=== PATIENT | female | born 1995 | race Caucasian/White ===

== ENCOUNTER 2016-07-24 10:24 | Inpatient (IN) | payer OTHER ==
[~2016-07-24] VITALS: Ht 154.9 cm; Wt 74.0 kg
[2016-07-24] VITALS (36 sets, daily range): BP systolic 114–148; BP diastolic 57–100
[2016-07-24] MEDS ORDERED: LACTATED RINGER'S 1000 ML IV STA (10:50)
[2016-07-24] MEDS ORDERED: ZOLO100T PO (11:38)
[2016-07-24] MEDS ORDERED: ZOFR20TA PO (11:39)
[2016-07-24] MEDS ORDERED: BANO2CRE EX (11:40)
[2016-07-24] MEDS ORDERED: HYDR1CRE TOP (11:41)
--- NOTE | 2016-07-24 11:47 | HPEPDOC ---
Obstetrical History & Physical General Date of Admission Jul 24, 2016 at 10:50 History of Present Illness Casandra is a 21yo with SIUP at 39w1d by 8wk u/s presenting today with painful regular ctx all night long that are closer together, about every 5 min now. No LOF, no vaginal bleeding, good movement. PMhx: asthma (albuterol prn), anxiety/depression (on 100mg zoloft QD), tobacco use (currently 3 cig/day), endometriosis course: benign Chief Complaint: Contractions, term Information Provided By: Patient Care Care: Good Care Dating Final EDC: Jul 30, 2016 Final EDC by: 1st trimester (US) Antepartum Course Height (inches): 60 Pre- weight (lbs.): 137 Admission Weight (lbs.): 169 Change in Weight (lbs.): 32 Past Medical History Past Obstetrical History : Past Obstetrical History: [employer] History: Endometriosis, Ovarian cysts, Human papillomavirus(HPV), History of STD (Hx of chlamydia in 2010) Past Medical History Medical History Asthma (albuterol prn), anxiety/depression (on 100mg zoloft QD), tobacco use ( currently 3 cig/day), endometriosis Surgical History: Diagnostic laparoscopy, Other (Laparoscopy x4 for endometriosis with laser fulgaration) Family History Significant Family History: No pertinent family hx Social History Marital Status: Family situation: Spouse/partner home Psychosocial History: Anxiety, Depression * Smoker: current smoker (3 cig/day) Alcohol: Denies Drugs: denies Imunizations Tdap status: current Influenza Status: current Physical Examination Physical Examination GENERAL: Alert and oriented times three. ABDOMEN: Gravid and non-tender to touch. FETUS: Is vertex (VTX) by sterile vaginal examination (SVE) HEART RATE: Regular rate and rhythm. LUNGS: Clear to auscultation (CTA). EXTREMITIES: Trace edema of BLE Pertinent Laboratoy Data Blood Type: O+ RBC Antibody Screen: Negative HIV: Negative Hepatitis B: Negative Hepatitis C: Unknown Rapid Plasma Reagin: Nonreactive Rubella: Immune Varicella: Immune Chlamydia/Gonorrhea: Negative Group B Streptococcus: Negative Glucose Tolerance Test: 82 Anatomy Ultrasound Ultrasound Date: Mar 16, 2016 Placenta Location: Posterior Normal Anatomy: Yes Placenta Previa: No Steroid Therapy Steroid Therapy: No Vaginal Examination Dilation: 4 cm Effacement: 80+% Station: -2 Cervical Consistency: Soft Cervical Position: Middle Presentation: Cephalic presentation Assessment Heart Rate (FHR): 140 Variability: Moderate Accelerations: Positive Decelerations: None Tocometer Contractions: Yes Frequency: regular, every 3-7 min. Duration: greater than 60 seconds Strength: palpated as moderate Assessment/Plan Assessment Casandra is a 21yo with SIUP at 39w1d by 8wk u/s being admitted to L&D for active labor with SCE 4/80/-2, ctx q5 min. Cephalic by SCE. Vitals wnl. Cat I FHRT. GBS negative. PMhx: asthma (albuterol prn), anxiety/depression (on 100mg zoloft QD), tobacco use (currently 3 cig/day), endometriosis course: benign Plan Admit and orient. [employer] and consent. Diet: clear liquids Labs and intravenous (IV) per unit protocol. Lactated Ringers (LR): Bolus 1000 mL, then at 125 mL/hr. Anticipate normal spontaneous delivery () C-S as appropriate. Desires epidural for pain control Dr. Chris Baltazar MD [place] Schilling MD Jul 24, 2016 11:47
[2016-07-24 12:36] LABS: MEAN CORPUSCULAR HEMOGLOBIN 28.8 pg (27.0-33.0); MEAN CORPUSCULAR HGB CONC 32.4 g/dl (32.0-36.5); MEAN CORPUSCULAR VOLUME 88.7 fl (80.0-96.0); RED CELL DISTRIBUTION WIDTH 13.5 % (11.5-14.5); WHITE BLOOD COUNT 13.3 K/mm3 (4.0-10.0)
[2016-07-24] MEDS: LR 1,000 ML IV SCH ×4 (13:16→22:41)
[2016-07-24] MEDS ORDERED: FENTANYL 2MCG/ML ROPIVACAINE 0.2% IN 0.9% NACL 200ML IVBAG As Ordered ONE (13:36)
[2016-07-24] MEDS ORDERED: OXYTOCIN DRIP 30 UNITS in APPROPRIATE DILUENT 1 EA IV SCH ×2 (14:45→22:37)
[2016-07-24] MEDS ORDERED: DIBUCAINE 1% OINTMENT 30GM TOP PRN (22:45)
[2016-07-24] MEDS ORDERED: METHYLERGONOVINE MALEATE 0.2 MG TAB PO PRN (22:45)
[2016-07-24] MEDS ORDERED: RHOGAM 300 MCG (1500 IU) INJ (J2790) IM SCH (22:45)
[2016-07-24] MEDS ORDERED: ANUSOL HC CREAM 30GM TOP PRN (22:45)
[2016-07-24] MEDS ORDERED: PROMETHAZINE 25 MG TAB PO PRN (22:45)
[2016-07-24] MEDS ORDERED: ONDANSETRON 4MG/2ML VIAL (J2405) IV PRN (22:45)
[2016-07-24] MEDS ORDERED: DOCUSATE SODIUM 100 MG CAP PO PRN (22:45)
[2016-07-24] MEDS ORDERED: ACETAMINOPHEN 500 MG TAB PO PRN (22:45)
[2016-07-24] MEDS ORDERED: MEASLES,MUMPS,RUBELLA VACCINE INJ (MMR-II) (90707) SC SCH (22:45)
[2016-07-25] MEDS: IBUPROFEN 800 MG TAB PO PRN ×2 (01:58→17:44)
[2016-07-25 02:02] VITALS: BP 135/81
[2016-07-25] MEDS: LR 1,000 ML IV SCH ×2 (02:50→06:41)
[2016-07-25 05:35] VITALS: BP 135/67
[2016-07-25] MEDS: PRENATAL VITAMIN TAB PO SCH (09:29)
[2016-07-25 18:00] VITALS: BP 137/83
[2016-07-26 06:06] VITALS: BP 115/69
[2016-07-26] MEDS: PRENATAL VITAMIN TAB PO SCH (07:50)
[2016-07-26] MEDS: IBUPROFEN 800 MG TAB PO PRN (07:52)
--- NOTE | 2016-07-26 08:55 | IPNPDOC ---
Text Note Date of Service The patient was seen on 07/26/16. NOTE PPD 2 Casandra is a 21yo doing well on PPD 2 s/p uncomplicated . She is /bottle-feeding. Lochia normal, spontaneously voiding and ambulating without difficulty. Tolerating regular diet. Denies f/c/n/v/SOB/CP/SHAH /abdominal pain. Vitals wnl, afebrile Exam: General: WDWN, NAD, resting comfortably Abdomen: soft, NTTP, fundus firm u-2cm Extremities: no tenderness of calves bilaterally Assessment: Casandra is a 21yo doing well on PPD 2 s/p uncomplicated . Meeting all milestones. No e/o infection, hemodynamically stable. Plan: -discharge to home with routine follow-up for 6wk PP visit -home meds already given from clinic stock: motrin, tylenol, lanolin, colace, dibucaine Dr. Chris Baltazar MD [place] [facility],[place], I+O VS, [place], I+O Vital Signs Date Time Temp Pulse Resp B/P Pulse Ox O2 Delivery O2 Flow Rate FiO2 07/26/16 06:06 98.4 78 18 115/69 97 Room Air CHRIS BALTAZAR MD Jul 26, 2016 08:55
[2016-07-26] MEDS ORDERED: ACET50TA PO (09:06)
[2016-07-26] MEDS ORDERED: IBUP-1114 PO (09:07)
[2016-07-26] MEDS ORDERED: COLA100C3 PO (09:08)
[2016-07-26] MEDS ORDERED: NUPE1OIN2 TOP (09:10)
== END 2016-07-26 11:35 | disposition home or self-care (01) | DRG 775 ==
LOC: M LDO 10:24 → M LDI 10:50 → M OBS 07-25 01:04
PROVIDERS: ADMIT Obstetrics & Gynecology; ATTEND Obstetrics & Gynecology
PROC: 10E0XZZ Delivery of Products of Conception, External Approach (ICD-10-PCS; principal; 2016-07-24)
PROC: 0KQM0ZZ Repair Perineum Muscle, Open Approach (ICD-10-PCS; 2016-07-24)
DX: O99.334 Smoking (tobacco) complicating childbirth (principal); Z37.0 Single live birth; Z3A.39 39 weeks gestation of pregnancy; F41.9 Anxiety disorder, unspecified; O70.1 Second degree perineal laceration during delivery; F32.9 Major depressive disorder, single episode, unspecified; F17.210 Nicotine dependence, cigarettes, uncomplicated; O99.344 Other mental disorders complicating childbirth

== ENCOUNTER 2019-01-04 16:38 | Emergency (ER) | payer OTHER ==
[~2019-01-04] VITALS: Ht 157.5 cm; Wt 66.5 kg
[~2019-01-04 16:38] MED LIST: ALB2.5NEB INH; BANO2CRE EX; COLA100C5 PO; HYDR1CRE TOP; IBUP-1114 PO; LUTERA-28; MAPA500T2 PO; NUPE1OIN2 TOP; ZOFR4TAB16 PO; ZOLO100T PO
[2019-01-04] MEDS ORDERED: AMOX875T2 (16:43)
[2019-01-04 18:28] LABS: BASO % 0.2 % (0.0-1.0); EOS # 0.2 10^3/uL (0.0-0.5); EOS % 1.7 % (0.0-3.0); HEMATOCRIT 36.2 % (36.0-47.0); HEMOGLOBIN 12.7 g/dl (12.0-15.5); LYMPH # 2.9 10^3/uL (1.5-5.0); LYMPH % 24.9 % (24.0-44.0); MEAN CORPUSCULAR HGB CONC 35.1 g/dl (32.0-36.5); MONO # 0.7 10^3/uL (0.0-0.8); MONO % 5.7 % (0.0-5.0); NEUTROPHILS # 7.8 10^3/uL (1.5-8.5); NEUTROPHILS % 66.8 % (36.0-66.0); PLATELET COUNT, AUTOMATED 224 10^3/uL (150-450); RED BLOOD COUNT 3.85 10^6/uL (4.00-5.40); WHITE BLOOD COUNT 11.7 10^3/uL (4.0-10.0)
[2019-01-04 20:40] LABS: CHLAMYDIA DNA AMPLIFICATION NEGATIVE (NEGATIVE); GC DNA AMPLIFICATION NEGATIVE (NEGATIVE)
--- NOTE | 2019-01-04 21:05 | REPVR ---
EXAM: US After First Trimester, Transabdominal EXAM DATE/TIME: 01/04/2019 7:52 PM CLINICAL HISTORY: 23 years old, female; complicated by abdominal or pelvic pain; Lower; Second trimester; Gestational age or lmp: 17 weeks 3 days; ; Additional info: 17 weeks; Pelvic pain/spotting TECHNIQUE: Imaging protocol: Real-time transabdominal obstetrical ultrasound of the maternal pelvis and a second or third trimester with image documentation. COMPARISON: No relevant prior studies available. FINDINGS: GESTATION: Gestation: There is a single intrauterine gestation. Heart rate: The heart rate is 141 bpm. Presentation: presentation is breech. Placenta: The placenta is anterior. No evidence of previa or abruption. Amniotic fluid: Subjectively, amniotic fluid appears adequate. Head, face, and neck: A facial profile was suboptimal. Cavum septum pellucidum was visualized. Heart: The four-chamber heart view was suboptimal due to position. Evaluation of the left and right ventricular outflow tracts was suboptimal due to position. Abdomen: The kidneys were visualized. The stomach was visualized. The bladder was visualized. The stomach was visualized. The diaphragm was visualized. Umbilical cord and insertion: The cord insertion was visualized. Spine: Limited visualization of the lumbosacral spine. Extremities: Extremities are partially obscured by position. BIOMETRY: Estimated gestational age: The ultrasound gestational age is 17 weeks 5 days. Estimated due date: The estimated due date is 06/09/2019. Estimated weight: The estimated weight is 218 g. 69th percentile. Biparietal diameter: BPD is 3.7 cm, 17 weeks 3 days. 49th percentile. Head circumference: HC is 14.2 cm, 17 weeks 4 days. 54th percentile. cerebellum diameter: 1.7 cm. Abdominal circumference: AC is 12.2 cm, 17 weeks and 6 days. 63rd percentile. Femur length: FL is 2.7 cm, 18 weeks 1 day. 70th percentile. MATERNAL: Uterus: Unremarkable. Cervix: The cervix is closed measuring 3.0 cm in length. Left adnexa: The left ovary demonstrates a cyst measuring 2.1 x 2.0 x 2.3 cm. Normal blood flow. The right ovary was not visualized. IMPRESSION: 1. No acute findings. 2. Single live intrauterine gestation, detailed above. 3. Limited assessment of anatomy due to gestational age. Recommend formal anatomic survey at 20 weeks. Electronically signed by: Elida Lama On 01/04/2019 21:04:43 PM
[2019-01-04] MEDS ORDERED: MONI4CRE3 PV (21:41)
[2019-01-04 21:52] VITALS: BP 130/70
== END 2019-01-04 21:50 | disposition home or self-care (01) ==
LOC: M ED 16:38
DX: O23.42 Unspecified infection of urinary tract in pregnancy, second trimester (principal); O23.592 Infection of other part of genital tract in pregnancy, second trimester; Z3A.17 17 weeks gestation of pregnancy; O99.342 Other mental disorders complicating pregnancy, second trimester; O99.332 Smoking (tobacco) complicating pregnancy, second trimester

== ENCOUNTER 2019-01-29 15:46 | Outpatient (CLI) | payer OTHER ==
[~2019-01-29] VITALS: Ht 157.5 cm; Wt 64.0 kg
[~2019-01-29 15:46] MED LIST changes: +AMOX875T2; +MONI4CRE3 PV
[2019-01-29 16:27] VITALS: BP 111/66
[2019-01-29 17:10] LABS: APPEARANCE, URINE HAZY (CLEAR); BACTERIA, URINE AUTO 1+ (NEGATIVE); BILIRUBIN, URINE AUTO NEGATIVE (NEGATIVE); BLOOD, URINE BLOOD 1+ (NEGATIVE); COLOR, URINE YELLOW (YELLOW); GLUCOSE, URINE (UA) AUTO NEGATIVE (NEGATIVE); KETONE, URINE AUTO NEGATIVE (NEGATIVE); LEUKOCYTE ESTERASE, URINE AUTO NEGATIVE (NEGATIVE); MUCUS, URINE SMALL (NEGATIVE); NITRITE, URINE AUTO NEGATIVE (NEGATIVE); PROTEIN, URINE AUTO NEGATIVE (NEGATIVE); RBC, URINE AUTO 3 /HPF (0-3); SPECIFIC GRAVITY URINE AUTO 1.023 (1.002-1.035); SQUAMOUS EPITHELIAL CELL UR AU 3 /HPF (0-6); UROBILINOGEN, URINE AUTO 0.2 mg/dL (0.0-2.0); WBC, URINE AUTO 1 /HPF (0-3)
== END 2019-01-29 17:50 | disposition home or self-care (01) ==
LOC: M LDO 15:46
PROVIDERS: ATTEND Advanced Practice Midwife
DX: O26.892 Other specified pregnancy related conditions, second trimester (principal); Z3A.21 21 weeks gestation of pregnancy; M54.5 Low back pain
CPT/HCPCS: 81001; 87086; G0378; G0463